=== PATIENT | male | born 1960 | race Caucasian/White ===

== ENCOUNTER → 2017-12-26 | Outpatient (CLI) | payer SELFPAY | END | disposition home or self-care (01) | LOC: LABPAT 08:54 | PROVIDERS: ATTEND Otolaryngology | DX: Z01.818 Encounter for other preprocedural examination (principal); I10 Essential (primary) hypertension | CPT/HCPCS: 93005 ==

== ENCOUNTER 2018-01-26 07:07 | Day surgery (SDC) | payer OTHER ==
[2018-01-20 12:58] VITALS: BMI 40.0
[~2018-01-26 07:07] MED LIST: DEXAMETHASONE SOD PHOSPHATE 4 MG/ML 1 ML VIAL IV ONE; FAMOTIDINE 20 MG/2 ML VIAL IV ONE; HYDROmorphone 0.5 MG/0.5 ML SYRINGE IVP PRN; LACTATED RINGERS 1,000 ML IV SCH; LIDOCAINE 1% 20 ML VIAL (10MG/ML) FOR IV START INTRADERMA PRN; ONDANSETRON 4 MG/2 ML VIAL IVP ONE; SCOPOLAMINE 1.5MG/72HR PATCH TRANSDERM ONE; ceFAZolin IN SWFI 2 GM/20 ML SYRINGE IVP ONE
[2018-01-26] MEDS ORDERED: CIPROFLOXACIN-DEXAMETH 0.3-0.1% DROPS 7.5 ML BTL LEFT EAR ONE (08:58)
[2018-01-26] MEDS ORDERED: ePHEDrine SULFATE/0.9% NACL/PF 50 MG/5 ML SYRINGE IV ONE (09:02)
[2018-01-26] MEDS ORDERED: DEXAMETHASONE SOD PHOS (MDV) 100 MG/10 ML VIAL ONE (09:02)
[2018-01-26] MEDS ORDERED: PROPOFOL 10 MG/ML 20 ML VIAL IV ONE (09:02)
[2018-01-26] MEDS ORDERED: SUCCINYLCHOLINE CHLORIDE VIAL 200 MG/10 ML VIAL IV ONE (09:02)
[2018-01-26] MEDS ORDERED: MIDAZOLAM 2 MG/2 ML VIAL ONE (09:02)
[2018-01-26] MEDS ORDERED: LIDOCAINE 1% INJ 10MG/ML (20 ML MDV) ONE (09:02)
[2018-01-26] MEDS ORDERED: fentaNYL (PF) 50 MCG/ML 2 ML AMP ONE (09:02)
[2018-01-26] MEDS ORDERED: LIDOCAINE 1%-EPI 1:100,000 30 ML VIAL SQ ONE ×2 (09:23)
[2018-01-26] MEDS ORDERED: LACTATED RINGERS 1,000 ML IV ONE (09:40)
[2018-01-26] MEDS ORDERED: GELATIN SPONGE,ABSORB (SMALL) 1 EACH SPONGE TOPICAL ONE (09:52)
[2018-01-26] MEDS ORDERED: EPINEPHrine 1 MG/ML (MDV) 30 ML VIAL IRRIGATION ONE (09:52)
[2018-01-26] MEDS ORDERED: OXYMETAZOLINE 0.05% NASL SPRAY 1 SPRAY BOTTLE MISCELLANE ONE (09:53)
[2018-01-26 10:16] VITALS: TEMP 97
--- NOTE | 2018-01-26 10:26 | P.OP ---
Date of Procedure: 01/26/18 Preoperative Diagnosis: Bony exostosis, left external auditory canal Conductive hearing loss left side Postoperative Diagnosis: Same Procedure(s) Performed: Excision exostosis Left external auditory canal (47983) Anesthesia: LEATHAA Surgeon: Qamar Rodriguez Estimated Blood Loss (ml): 2 Pathology: none sent Condition: stable Disposition: PACU Indications for Procedure: Patient developed a conductive hearing loss on the left side secondary to exuberant left-sided bony exostosis and ear canal stenosis. Surgical correction of this was recommended. All risks, benefits, and alternative therapies were discussed. Consent was obtained and all questions were answered. Operative Findings: Severe left-sided bony exostosis with near total closure of the ear canal. Description of Procedure: This patient was taken to the operative room and placed in the supine position. A general inhalation anesthetic was administered to the patient by mask and subsequently intubated with a cuffed endotracheal tube by the department of anesthesia with a functioning IV line in place. The patient was monitored throughout the entire case by the department of anesthesia. The left ear was sterilely prepped and draped in usual fashion and the ear canal was injected with lidocaine 1% with epinephrine 1 100,000. 10 minutes were allowed wait for full vasoconstrictive effects to take place. At this time a incision was made in the ear canal with a shaky round knife anteriorly to the bony exostosis and the skin was reflected back with use of a gimmick. This exposed the bony exostosis and with use of a curet and a mosquito Drell the bony exostosis was drilled away. We reflected the skin back into position and filled the ear canal with Gelfoam packing and then a similar pack was placed. The patient will remove Shantanu pack in 24 hours and a follow-up in 3 weeks is scheduled for a reevaluation of this left ear canal surgery. Patient tolerated this well. Was taken to postanesthesia recovery in excellent condition.
[2018-01-26 10:57] VITALS: RESP 16
[2018-01-26 11:26] VITALS: BP 99/63; PULSE 85
== END 2018-01-26 11:33 | disposition home or self-care (01) ==
LOC: OR 07:07
PROVIDERS: ATTEND Otolaryngology
DX: H61.812 Exostosis of left external canal (principal); H90.2 Conductive hearing loss, unspecified; I10 Essential (primary) hypertension; Z79.899 Other long term (current) drug therapy
CPT/HCPCS: 69140; J0171; J2250; J0330; J1100 ×2; J2405; J2001; J3010; J2704; J0690